=== PATIENT | male | born 1970 | race Caucasian/White ===

== ENCOUNTER 2017-04-19 09:44 | Emergency (ER) | payer SELFPAY ==
[2017-04-19] MEDS ORDERED: Succinylcholine 200 MG/10 ML MDV IV ONE (09:45)
[2017-04-19] MEDS ORDERED: Propofol 200 MG/20 ML SDV IV ONE (09:45)
[2017-04-19] MEDS ORDERED: Rocuronium 50 MG/5 ML Vial IV ONE (09:45)
[2017-04-19] MEDS ORDERED: Sodium Chloride 0.9% 10 ML Syringe FLUSH PRN (09:47)
[2017-04-19] MEDS ORDERED: Albuterol/Ipratropium 3.0-0.5 MG/3 ML Neb Soln ONE (09:55)
[2017-04-19] MEDS ORDERED: Albuterol/Ipratropium 3.0-0.5 MG/3 ML Neb Soln NEB ONE (09:56)
--- NOTE | 2017-04-19 09:58 | EDM.PDOC ---
ED HPI GENERAL MEDICAL PROBLEM - General Chief Complaint: Diabetic Complaint Stated Complaint: SOB Time Seen by Provider: 04/19/17 09:50 Source of Information: Reports: Patient, Family, RN, RN Notes Reviewed History Limitations: Reports: Altered Mental Status, Respiratory Distress - History of Present Illness INITIAL COMMENTS - FREE TEXT/NARRATIVE: Pt presents to the ER in respiratory distress accompanied by his boss. Pt is from [place] and has no health records here. Pt answers a few questions. He states he was diagnosed with influenza a week ago. He states he is diabetic and had a history of drug use. He states he has had a "cold" for about 2-3 weeks. Pt denies any drug allergies. Onset: Gradual - Related Data Allergies Allergy/AdvReac Type Severity Reaction Status Date / Time No Known Allergies Allergy Verified 04/19/17 10:10 ED ROS GENERAL - Review of Systems Review Of Systems: ROS reveals no pertinent complaints other than HPI. (90) ED EXAM GENERAL NO PERIP PULSE - Physical Exam Exam: See Below Exam Limited By: Respiratory Distress General Appearance: Lethargic, Moderate Distress Eye Exam: Bilateral Eye: PERRL (4 sluggish) Ears: Normal External Exam, Hearing Grossly Normal Nose: Normal Inspection, Nasal Drainage (green, thick) Throat/Mouth: Other (Difficult to understand patient, working very hard to breathe. ) Head: Atraumatic, Normocephalic Neck: Normal Inspection, Supple, Non-Tender, Full Range of Motion Respiratory/Chest: Respiratory Distress, Crackles, Rales, Rhonchi, Wheezing, Accessory Muscle Use Cardiovascular: Normal Peripheral Pulses, Regular Rate, Rhythm, No Edema, No Gallop, No JVD, No Murmur, No Rub, Tachycardia GI/Abdominal: Normal Bowel Sounds, Soft, Non-Tender, No Organomegaly, No Distention, No Abnormal Bruit, No Mass (Male) Exam: Deferred Rectal (Males) Exam: Deferred Back Exam: Normal Inspection, Decreased Range of Motion Extremities: Normal Inspection, Normal Range of Motion, Non-Tender, No Pedal Edema, Slow Capillary Refill Neurological: Confused, Disoriented, Slow to Respond Psychiatric: Anxious Skin Exam: Warm, Dry, Intact, Normal Color, No Rash Lymphatic: No Adenopathy EKG INTERPRETATION EKG Date: 04/19/17 Time: 09:44 Rhythm: Other (sinus tach) Rate (Beats/Min): 115 Bent: Normal P-Wave: Present QRS: Normal ST-T: Normal QT: Normal Comparison: NA - No Prior EKG Course - Vital Signs Last Recorded V/S: Last Vital Signs Temp 97.8 F 04/19/17 10:22 Pulse 110 H 04/19/17 10:22 Resp 16 04/19/17 10:22 BP 79/61 L 04/19/17 10:22 Pulse Ox 93 L 04/19/17 10:22 - Orders/Labs/Meds Labs: Laboratory Tests 04/19/17 04/19/17 04/19/17 Range/Units 09:53 09:55 09:55 WBC 29.4 H* (5.0-10.0) 10^3/uL RBC 4.72 (4.6-6.2) 10^6/uL Hgb 13.4 L (14.0-18.0) g/dL Hct 39.6 L (40.0-54.0) % MCV 83.9 (80-100) fL MCH 28.4 (27.0-34.0) pg MCHC 33.8 (33.0-35.0) g/dL Plt Count 754 H (150-450) 10^3/uL Neut % (Auto) 79.0 H (42.2-75.2) % Lymph % (Auto) 7.4 L (20.5-50.1) % Gilmer % (Auto) 13.4 H (2-8) % Eos % (Auto) 0.1 L (1.0-3.0) % Baso % (Auto) 0.1 (0.0-1.0) % Add Manual Diff Yes Neutrophils % (Manual) 60 (42-75) % Band Neutrophils % 7 % Lymphocytes % (Manual) 12 L (20-50) % Monocytes % (Manual) 14 H (2-8) % Metamyelocytes % 5 Myelocytes % 2 Toxic Granulation 2+ moderate Dohle Bodies 1+ slight ABG pH (7.35-7.45) ABG pCO2 (35-45) mmHg ABG pO2 (70-100) mmHg ABG HCO3 (22-26) mmol/L ABG O2 Saturation (95-100) % ABG Base Excess ((-2)-(+3)) mmol/L Antony Test O2 Delivery Device Sodium 126 L (135-145) mmol/L Potassium 4.3 (3.6-5.0) mmol/L Chloride 89 L (101-111) mmol/L Carbon Dioxide 12.0 L (21.0-31.0) mmol/L Anion Gap 29.3 BUN 56 H (7-18) mg/dL Creatinine 2.1 H (0.6-1.3) mg/dL Est Cr Clr Drug Dosing 44.90 mL/min Estimated GFR (MDRD) 34 BUN/Creatinine Ratio 26.66 Glucose 490 H* (74-105) mg/dL POC Glucose > 500 H* (70-105) mg/dl Lactic Acid (0.5-2.2) mmol/L Calcium 9.5 (8.4-10.2) mg/dl Total Bilirubin 1.5 H (0.2-1.0) mg/dL AST 24 (10-42) IU/L ALT 20 (10-60) IU/L Alkaline Phosphatase 143 H (42-121) IU/L Creatine Kinase (26-174) IU/L Creatine Kinase Index (0-2.4) % CK-MB (CK-2) (0.4-4.7) ng/mL Troponin I 0.02 (0.00-0.02) ng/ml B-Natriuretic Peptide 76 (0-100) pg/ml Total Protein 6.3 L (6.7-8.2) g/dl Albumin 1.8 L (3.2-5.5) g/dl Globulin 4.5 Albumin/Globulin Ratio 0.40 Urine Color (YELLOW) Urine Appearance (CLEAR) Urine pH (5.0-9.0) Ur Specific Whiteside (1.005-1.030) Urine Protein (NEGATIVE) Urine Glucose (UA) (NEGATIVE) Urine Ketones (NEGATIVE) Urine Occult Blood (NEGATIVE) Urine Nitrite (NEGATIVE) Urine Bilirubin (NEGATIVE) Urine Urobilinogen (0.2-1.0) mg/dL Ur Leukocyte Esterase (NEGATIVE) Urine RBC /HPF Urine WBC (0-5/HPF) /HPF Ur Epithelial Cells /HPF Amorphous Sediment (0/HPF) /HPF Fine Granular Casts (0/LPF) /LPF Urine Mucus /LPF Urine Opiates Screen (NEGATIVE) Ur Oxycodone Screen (NEGATIVE) Urine Methadone Screen (NEGATIVE) Ur Barbiturates Screen (NEGATIVE) U Tricyclic Antidepress (NEGATIVE) Ur Phencyclidine Scrn (NEGATIVE) Ur Amphetamine Screen (NEGATIVE) U Methamphetamines Scrn (NEGATIVE) Urine MDMA Screen (NEGATIVE) U Benzodiazepines Scrn (NEGATIVE) Urine Cocaine Screen (NEGATIVE) U Marijuana (THC) Screen (NEGATIVE) Ethyl Alcohol < 5 mg/dL 04/19/17 04/19/17 04/19/17 Range/Units 09:55 09:55 09:55 WBC (5.0-10.0) 10^3/uL RBC (4.6-6.2) 10^6/uL Hgb (14.0-18.0) g/dL Hct (40.0-54.0) % MCV (80-100) fL MCH (27.0-34.0) pg MCHC (33.0-35.0) g/dL Plt Count (150-450) 10^3/uL Neut % (Auto) (42.2-75.2) % Lymph % (Auto) (20.5-50.1) % Gilmer % (Auto) (2-8) % Eos % (Auto) (1.0-3.0) % Baso % (Auto) (0.0-1.0) % Add Manual Diff Neutrophils % (Manual) (42-75) % Band Neutrophils % % Lymphocytes % (Manual) (20-50) % Monocytes % (Manual) (2-8) % Metamyelocytes % Myelocytes % Toxic Granulation Dohle Bodies ABG pH 7.16 L* (7.35-7.45) ABG pCO2 29 L (35-45) mmHg ABG pO2 88 (70-100) mmHg ABG HCO3 10.0 L (22-26) mmol/L ABG O2 Saturation 93 L (95-100) % ABG Base Excess -18 L ((-2)-(+3)) mmol/L Antony Test Performed O2 Delivery Device Nasal cannula Sodium (135-145) mmol/L Potassium (3.6-5.0) mmol/L Chloride (101-111) mmol/L Carbon Dioxide (21.0-31.0) mmol/L Anion Gap BUN (7-18) mg/dL Creatinine (0.6-1.3) mg/dL Est Cr Clr Drug Dosing mL/min Estimated GFR (MDRD) BUN/Creatinine Ratio Glucose (74-105) mg/dL POC Glucose (70-105) mg/dl Lactic Acid 2.9 H (0.5-2.2) mmol/L Calcium (8.4-10.2) mg/dl Total Bilirubin (0.2-1.0) mg/dL AST (10-42) IU/L ALT (10-60) IU/L Alkaline Phosphatase (42-121) IU/L Creatine Kinase 55 (26-174) IU/L Creatine Kinase Index 6.0 H (0-2.4) % CK-MB (CK-2) 3.30 (0.4-4.7) ng/mL Troponin I (0.00-0.02) ng/ml B-Natriuretic Peptide (0-100) pg/ml Total Protein (6.7-8.2) g/dl Albumin (3.2-5.5) g/dl Globulin Albumin/Globulin Ratio Urine Color (YELLOW) Urine Appearance (CLEAR) Urine pH (5.0-9.0) Ur Specific Whiteside (1.005-1.030) Urine Protein (NEGATIVE) Urine Glucose (UA) (NEGATIVE) Urine Ketones (NEGATIVE) Urine Occult Blood (NEGATIVE) Urine Nitrite (NEGATIVE) Urine Bilirubin (NEGATIVE) Urine Urobilinogen (0.2-1.0) mg/dL Ur Leukocyte Esterase (NEGATIVE) Urine RBC /HPF Urine WBC (0-5/HPF) /HPF Ur Epithelial Cells /HPF Amorphous Sediment (0/HPF) /HPF Fine Granular Casts (0/LPF) /LPF Urine Mucus /LPF Urine Opiates Screen (NEGATIVE) Ur Oxycodone Screen (NEGATIVE) Urine Methadone Screen (NEGATIVE) Ur Barbiturates Screen (NEGATIVE) U Tricyclic Antidepress (NEGATIVE) Ur Phencyclidine Scrn (NEGATIVE) Ur Amphetamine Screen (NEGATIVE) U Methamphetamines Scrn (NEGATIVE) Urine MDMA Screen (NEGATIVE) U Benzodiazepines Scrn (NEGATIVE) Urine Cocaine Screen (NEGATIVE) U Marijuana (THC) Screen (NEGATIVE) Ethyl Alcohol mg/dL 04/19/17 04/19/17 Range/Units 10:35 10:35 WBC (5.0-10.0) 10^3/uL RBC (4.6-6.2) 10^6/uL Hgb (14.0-18.0) g/dL Hct (40.0-54.0) % MCV (80-100) fL MCH (27.0-34.0) pg MCHC (33.0-35.0) g/dL Plt Count (150-450) 10^3/uL Neut % (Auto) (42.2-75.2) % Lymph % (Auto) (20.5-50.1) % Gilmer % (Auto) (2-8) % Eos % (Auto) (1.0-3.0) % Baso % (Auto) (0.0-1.0) % Add Manual Diff Neutrophils % (Manual) (42-75) % Band Neutrophils % % Lymphocytes % (Manual) (20-50) % Monocytes % (Manual) (2-8) % Metamyelocytes % Myelocytes % Toxic Granulation Dohle Bodies ABG pH (7.35-7.45) ABG pCO2 (35-45) mmHg ABG pO2 (70-100) mmHg ABG HCO3 (22-26) mmol/L ABG O2 Saturation (95-100) % ABG Base Excess ((-2)-(+3)) mmol/L Antony Test O2 Delivery Device Sodium (135-145) mmol/L Potassium (3.6-5.0) mmol/L Chloride (101-111) mmol/L Carbon Dioxide (21.0-31.0) mmol/L Anion Gap BUN (7-18) mg/dL Creatinine (0.6-1.3) mg/dL Est Cr Clr Drug Dosing mL/min Estimated GFR (MDRD) BUN/Creatinine Ratio Glucose (74-105) mg/dL POC Glucose (70-105) mg/dl Lactic Acid (0.5-2.2) mmol/L Calcium (8.4-10.2) mg/dl Total Bilirubin (0.2-1.0) mg/dL AST (10-42) IU/L ALT (10-60) IU/L Alkaline Phosphatase (42-121) IU/L Creatine Kinase (26-174) IU/L Creatine Kinase Index (0-2.4) % CK-MB (CK-2) (0.4-4.7) ng/mL Troponin I (0.00-0.02) ng/ml B-Natriuretic Peptide (0-100) pg/ml Total Protein (6.7-8.2) g/dl Albumin (3.2-5.5) g/dl Globulin Albumin/Globulin Ratio Urine Color Yellow (YELLOW) Urine Appearance Cloudy (CLEAR) Urine pH 5.0 (5.0-9.0) Ur Specific Whiteside 1.025 (1.005-1.030) Urine Protein 30 H (NEGATIVE) Urine Glucose (UA) 500 H (NEGATIVE) Urine Ketones 40 H (NEGATIVE) Urine Occult Blood Negative (NEGATIVE) Urine Nitrite Negative (NEGATIVE) Urine Bilirubin Large H (NEGATIVE) Urine Urobilinogen 0.2 (0.2-1.0) mg/dL Ur Leukocyte Esterase Negative (NEGATIVE) Urine RBC 0-5 /HPF Urine WBC 0-5 (0-5/HPF) /HPF Ur Epithelial Cells Rare /HPF Amorphous Sediment Many (0/HPF) /HPF Fine Granular Casts Moderate H (0/LPF) /LPF Urine Mucus Few H /LPF Urine Opiates Screen Negative (NEGATIVE) Ur Oxycodone Screen Negative (NEGATIVE) Urine Methadone Screen Negative (NEGATIVE) Ur Barbiturates Screen Negative (NEGATIVE) U Tricyclic Antidepress Negative (NEGATIVE) Ur Phencyclidine Scrn Negative (NEGATIVE) Ur Amphetamine Screen Negative (NEGATIVE) U Methamphetamines Scrn Negative (NEGATIVE) Urine MDMA Screen Negative (NEGATIVE) U Benzodiazepines Scrn Negative (NEGATIVE) Urine Cocaine Screen Negative (NEGATIVE) U Marijuana (THC) Screen Negative (NEGATIVE) Ethyl Alcohol mg/dL Meds: Medications Discontinued Medications Generic Name Dose Route Start Last Admin Trade Name Freq PRN Reason Stop Dose Admin Albuterol/Ipratropium 3 ml 04/19/17 09:56 04/19/17 10:00 Duoneb 3.0-0.5 Mg/3 Ml NEB 04/19/17 09:57 3 ml ONETIME ONE Administration Albuterol/Ipratropium Confirm 04/19/17 09:55 04/19/17 11:02 Duoneb 3.0-0.5 Mg/3 Ml Administered 04/19/17 09:56 Not Given Dose 3 ml .ROUTE .STK-MED ONE Norepinephrine Bitartrate 4 mg 250 mls @ 7.5 mls/hr 04/19/17 10:30 04/19/17 10:30 / Dextrose/Water IV Not Given TITRATE [place] Protocol 2 MCG/MIN Insulin Human Regular 100 unit 100 mls @ 8.16 mls/hr 04/19/17 10:45 04/19/17 10:58 / Sodium Chloride IV 0.1 units/kg/hr TITRATE [place] 8.16 mls/hr Protocol Administration 0.1 UNITS/KG/HR Ceftriaxone Sodium 1,000 mg/ 50 mls @ 100 mls/hr 04/19/17 10:44 04/19/17 10: 51 Sodium Chloride IV 04/19/17 11:13 100 mls/hr ONETIME ONE Administration Midazolam HCl 2 mg 04/19/17 10:40 04/19/17 10:51 Versed 1 Mg/Ml IVPUSH 04/19/17 10:41 2 mg ONETIME ONE Administration Propofol 150 mg 04/19/17 09:45 Diprivan 20 Ml IV 04/19/17 09:46 .STK-MED ONE Rocuronium [place] 50 mg 04/19/17 09:45 Zemuron IV 04/19/17 09:46 .STK-MED ONE Sodium Chloride 10 ml 04/19/17 09:47 04/19/17 10:30 Saline Flush FLUSH 10 ml ASDIRECTED PRN Administration Keep Vein Open Succinylcholine Chloride 120 mg 04/19/17 09:45 Quelicin IV 04/19/17 09:46 .STK-MED ONE - Re-Assessments/Exams Free Text/Narrative Re-Assessment/Exam: 04/23/17 10:01 Patient was rapidly intubated. [facility] was called and Dr. Crawford agreed to accept the patient. Departure - Departure Time of Disposition: 12:00 Disposition: DC/Tfer to Acute Hospital 02 Condition: Poor, Critical Clinical Impression: Hyperglycemia Sepsis Qualifiers: Sepsis type: sepsis due to unspecified organism Qualified Code(s): A41.9 - Sepsis, unspecified organism Respiratory failure Qualifiers: Chronicity: acute Respiratory failure complication: hypoxia and hypercapnia Qualified Code(s): J96.01 - Acute respiratory failure with hypoxia; J96.02 - Acute respiratory failure with hypercapnia; J96.02 - Acute respiratory failure with hypercapnia; J96.02 - Acute respiratory failure with hypercapnia - Discharge Information Referrals: PCP,None [Primary Care Provider] - Forms: ED Department Discharge, Interfacility Transfer MJ
[2017-04-19 10:28] LABS: CHLORIDE,CL 89 mmol/L (101-111); SODIUM,NA 126 mmol/L (135-145)
[2017-04-19] MEDS ORDERED: Norepinephrine 4 MG in Dextrose 5% in Water 246 ML IV SCH ×2 (10:30)
[2017-04-19] MEDS ORDERED: Midazolam 1 MG/ML 2 ML SDV IVPUSH ONE (10:40)
[2017-04-19] MEDS ORDERED: cefTRIAXone 1,000 MG in Sodium Chloride 0.9% 50 ML IV ONE (10:44)
[2017-04-19 12:41] LABS: BASE EXCESS ARTERIAL -18 mmol/L ((-2)-(+3)); O2 DELIVERY DEVICE NASAL CANNULA; O2 SATURATION ARTERIAL 93 % (95-100); PCO2 ARTERIAL 29 mmHg (35-45); PO2 ARTERIAL 88 mmHg (70-100)
[2017-04-19 12:42] LABS: ALLEN TEST PERFORMED
--- NOTE | 2017-04-19 14:52 | PCM.PRNOTE ---
- Free Text/Narrative Note: Called to the ED for a stat intubation. Upon my arrival, pt is sitting in bed having difficulty breathing. Pt is awake, but not alert or oriented. Pt is not answering questions and appears in respiratory distress. received quick report from attending provider. Requested to intubate. Pt was given 150 mg Propofol IVP, followed by 120 mg Succinylcholine IVP. Using a laryngoscope with a MAC 4 blade, a 8.0 ETT with stylet was inserted through the vocal cords, into the trachea. Grade 1 view entire time. Stylet removed, air inflated into cuff. Ambu applied and positive ETCo2. Tube was secured at 23 cm at lip. After airway secured, pt was given 50 mg Rocuronim IVP for relaxation. Attending provider will order, and monitor, sedation. Care was transferred to attending. Pt is scheduled to be transferred as soon as possible.
--- NOTE | 2017-04-23 14:35 | EKG ---
04/19/2017 - ANAMIKA RENEE- TIME: 9:44 a.m. The interpretation of this EKG is by me. The EKG shows a sinus tachycardia with a rate of 115 beats per minute. There are no obvious ST segment or T-wave changes. The axis is normal, and the corrected QT interval is slightly prolonged at 476 milliseconds. [facility] /[id number]
== END 2017-04-19 12:00 ==
LOC: DL.ED 09:44 → EEVIPCON 09:44 → DL.ED 12:00
DX: A41.9 Sepsis, unspecified organism (principal); R65.11 Systemic inflammatory response syndrome (SIRS) of non-infectious origin with acute organ dysfunction; J96.01 Acute respiratory failure with hypoxia; J96.02 Acute respiratory failure with hypercapnia; R73.9 Hyperglycemia, unspecified
CPT/HCPCS: 31500; 36415; 36600; 71045; 80053; 80305; 81001; 82550; 82553; 82803; 82962; 83605; 83880; 84484; 85025; 87040; 87077; 87186; 93005; 93010; 96365; 96375; 99285; G0480; J0330; J0696; J1815; J2250; J2704; J7050